=== PATIENT | male | born 1975 | race Caucasian/White ===

== ENCOUNTER 2018-06-18 20:44 | Emergency (ER) | payer MEDICAID, SELFPAY ==
[2018-06-18 20:46] VITALS: BP 146/79; PULSE 79; RESP 15; TEMP 36.8; O2SAT 98; BMI 35.9
--- NOTE | 2018-06-18 21:41 | RAD_ITS ---
STUDY: X-RAY - RIGHT ANKLE REASON FOR EXAM: Male, 42 years old. Right-sided ankle pain while walking. TECHNIQUE: 3 view(s) of the ankle. COMPARISON: October 29, 2013. FINDINGS: There are orthopedic screws visible in the suspected location of the medial malleolus as well as the central distal tibial epiphysis. There is residual deformity of the tibia related to the previous fracture. The distal fibula has a normal appearance. There are degenerative changes of the tibiotalar articulation. There is a large posterior calcaneal enthesophyte. There is a small plantar calcaneal spur. There is a small talar beak. The tarsal bones have a grossly normal appearance. There are degenerative changes of the intertarsal articulations. There is mild soft tissue swelling. RAD/Ankle min 3 Views IMPRESSION: 1. Sequela of previous surgery and tibial fractures. 2. Secondary degenerative changes of the tibiotalar articulation as well as the midfoot. 3. Calcaneal spurs. 4. Mild soft tissue swelling. Electronically Signed: Vita Ireland MD at 22:08 EST , Service support ,
--- NOTE | 2018-06-18 22:30 | ED.VISSUMM ---
- ER Visit Summary Date of Service: 06/18/18 Chief Complaint: Atraumatic right ankle pain and swelling History of Present Illness: The patient is a 42 M history of prior right ankle fracture with screws. Also prior right tibial fracture that had plates and screws. Patient is a history of diabetes and arthritis. He works at [employer] about 8 miles a day. And states he has had some pain and swelling recently. No fever. No redness. No acute injuries. Physical Examination: Middle-aged male no acute distress. Vital signs are stable he is afebrile he does not look septic toxic. H EENT exam unremarkable. Neck nontender. Lungs clear to auscultation bilaterally. Heart regular rate and rhythm no murmur. Abdomen soft nontender normal bowel sounds no peritoneal signs. Extremities moves all 4. Neurovascular intact. Right hip and knee are nontender. Nonswollen. Right ankle mild swelling anteriorly. He has well-healed old surgical incision. He can do dorsi and plantar flexion. DP pulses intact. Achilles tendon is intact. There is no bony deformity. No redness or warmth. He has normal touch sensation to his right foot and he is able to wiggle his toes. Otherwise exam unremarkable. Test Results: Three-view right ankle x-ray shows the screws to be in good position. No acute injury. Mild soft tissue swelling. Significant degenerative changes to his right ankle joint consistent with arthritis. With joint space narrowing. But no acute injury. Emergency Department Course and Treatment: I went over all the x-rays with the patient. His inflammation is consistent with arthritis and all the walking has been doing. Treatment Plan: Ice and elevate. Motrin for pain and inflammation. Increase activity as tolerated. Follow-up with orthopedics as needed. Disposition: Discharge Impression: Right ankle swelling secondary to exacerbation of right ankle arthritis History of prior right ankle fracture with orthopedic repair This note was generated with [employer] dictation software. It may contain incorrect words, spelling, and punctuation that were not noted in review of the chart prior to signing ED Disposition - Plan for ED Patient: Chief Complaint: Lower Extremity Injury Referrals: Care Physician,No Primary [Primary Care Provider] -
--- NOTE | 2018-06-18 22:33 | ED.DCSUM_ITS ---
- ER Visit Summary Date of Service: 06/18/18 Chief Complaint: Atraumatic right ankle pain and swelling History of Present Illness: The patient is a 42 M history of prior right ankle fracture with screws. Also prior right tibial fracture that had plates and screws. Patient is a history of diabetes and arthritis. He works at [employer] about 8 miles a day. And states he has had some pain and swelling recently. No fever. No redness. No acute injuries. Physical Examination: Middle-aged male no acute distress. Vital signs are stable he is afebrile he does not look septic toxic. H EENT exam unremarkable. Neck nontender. Lungs clear to auscultation bilaterally. Heart regular rate and rhythm no murmur. Abdomen soft nontender normal bowel sounds no peritoneal signs. Extremities moves all 4. Neurovascular intact. Right hip and knee are nontender. Nonswollen. Right ankle mild swelling anteriorly. He has well- healed old surgical incision. He can do dorsi and plantar flexion. DP pulses intact. Achilles tendon is intact. There is no bony deformity. No redness or warmth. He has normal touch sensation to his right foot and he is able to wiggle his toes. Otherwise exam unremarkable. Test Results: Three-view right ankle x-ray shows the screws to be in good position. No acute injury. Mild soft tissue swelling. Significant degenerative changes to his right ankle joint consistent with arthritis. With joint space narrowing. But no acute injury. Emergency Department Course and Treatment: I went over all the x-rays with the patient. His inflammation is consistent with arthritis and all the walking has been doing. Treatment Plan: Ice and elevate. Motrin for pain and inflammation. Increase activity as tolerated. Follow-up with orthopedics as needed. Disposition: Discharge Impression: Right ankle swelling secondary to exacerbation of right ankle arthritis History of prior right ankle fracture with orthopedic repair This note was generated with [employer] dictation software. It may contain incorrect words, spelling, and punctuation that were not noted in review of the chart prior to signing ED Disposition - Plan for ED Patient: Chief Complaint: Lower Extremity Injury Referrals: Care Physician,No Primary [Primary Care Provider] -
--- NOTE | 2018-06-18 22:33 | ED.DEP ---
ED Disposition - Plan for ED Patient: Disposition: Home or Assisted Living Chief Complaint: Lower Extremity Injury Instructions: ED Degenerative Joint Disease Referrals: Young Azar DO [STAFF PHYSICIAN] - 10-14 Days if not better Additional Instructions: Ice elevate right ankle. Motrin for pain and inflammation. Tylenol for pain. Follow-up with a local orthopedic physician like Dr. Young Azar if this is not improving.
[2018-06-18 22:41] VITALS: RESP 16
--- NOTE | 2018-06-18 22:42 | ED.RN ---
REVIEWED D/C INSTRUCTIONS, FOLLOW UP CARE, AND S/S THAT WOULD WARRANT A RETURN TO THE ED WITH PT. PT VERBALIZED AN UNDERSTANDING AND DENIES FURTHER QUESTIONS FOR THIS RN. PT SKIN P/W/D, RESP EVEN AND UNLABORED, PT A&O X 3, NO DISTRESS NOTED. PT AMBULATED OUT OF ED, GAIT STEADY.
== END 2018-06-18 22:44 | disposition home or self-care (01) ==
PROVIDERS: Emergency Provider Emergency Medicine
DX: M19.071 Primary osteoarthritis, right ankle and foot (principal); M77.31 Calcaneal spur, right foot; E11.9 Type 2 diabetes mellitus without complications; Z79.4 Long term (current) use of insulin
CPT/HCPCS: 73610; 99282

== ENCOUNTER → 2018-06-27 14:19 | Outpatient (CLI) | payer MEDICAID, SELFPAY ==
[2018-06-26 13:24] VITALS: BMI 35.9
== END ==
PROVIDERS: Visit Provider Physician Assistant Surgical
DX: J02.9 Acute pharyngitis, unspecified (principal)
CPT/HCPCS: 87077; 87081

== ENCOUNTER → 2020-01-25 10:16 | Outpatient (CLI) | payer MEDICAID, SELFPAY ==
[2018-06-26 13:24] VITALS: BMI 35.9
== END ==
DX: Z20.828 Contact with and (suspected) exposure to other viral communicable diseases (principal); R05 Cough
CPT/HCPCS: 87635; 94799; U0003

== ENCOUNTER 2020-02-19 09:36 | Emergency (ER) | payer MEDICAID, SELFPAY ==
[2018-06-26 13:24] VITALS: BMI 35.9
--- NOTE | 2020-02-19 09:55 | ED.DCSUM_ITS ---
History of Present Illness Chief Complaint: Flank Pain Informant: Patient Narrative: 44-year-old male presenting with right lower back pain. He states that it came out of nowhere about a week ago. He states that now it feels like it is radiating into his right flank and around the front of his lower abdomen. He denies any urinary symptoms. He states he had a similar pain in the past but was told he this pain was not in the right place for a kidney stone. Patient has no nausea, vomiting. He is not had fever, chills, shortness of breath, cough. - Past Medical History (1) Reactive airway disease that is not asthma Status: Chronic Past Medical History - Allergies and Home Meds Allergies/Adverse Reactions: Allergies acetaminophen [From Percocet] Allergy (Verified 02/19/20 09:59) Itching oxycodone HCl [From Percocet] Allergy (Verified 02/19/20 09:59) Itching Primary Care Physician: Care Physician,No Primary [Primary Care Provider] - Past Medical History: - - [place], hypertension Surgical History: noncontributory Lives: Spouse/ Significant Other Smoking Status: Never smoker Alcohol: None Drugs: None Review of Systems General: Denies: Chills, Fever, Sweats Eyes: Denies: Visual changes - bilaterally, Diplopia ENT: Denies: Rhinorrhea, Sore throat Cardiovascular: Denies: Chest pain, Palpitations Respiratory: Denies: Dyspnea, Cough, Dyspnea on exertion Gastrointestinal: Reports: Abdominal pain. Denies: Nausea, Vomiting, Diarrhea Genitourinary: Denies: Dysuria, Hematuria Musculoskeletal: Reports: Back pain - Right lower back. Denies: Myalgias, Arthralgias Skin: Denies: Rash, Abscess Physical Exam Inital Vital Signs reviewed: Yes General: Well nourished, No Acute Distress Head: Normocephalic, Atraumatic Eyes: Perrl, EOMI ENT: Moist mucous membranes, No rhinorrhea Cardiovascular: Regular rate, Regular rhythm Respiratory: No distress, CTA bilaterally Abdomen: Soft, Nondistended, Tender - Very mild tenderness to palpation of the right lower flank. Abdomen is non-peritoneal. Extremities: Nontender, No edema Skin: Normal color, No rash Neurological: Alert, Oriented x3 Psychological: Normal affect Diagnostic/Tx/Re-eval Laboratory Data 02/19/20 02/19/20 02/19/20 10:00 10:00 10:08 WBC 7.6 RBC 5.04 Hgb 15.9 Hct 46.0 MCV 91.3 MCH 31.5 MCHC 34.6 RDW Std Deviation 38.5 RDW Coeff of [place] 11.6 Plt Count 240 MPV 9.8 Immature Gran % (Auto) 0.500 Neut % (Auto) 49.7 Lymph % (Auto) 33.5 [place] % (Auto) 10.5 H Eos % (Auto) 4.9 Baso % (Auto) 0.9 Absolute Neuts (auto) 3.8 Absolute Lymphs (auto) 2.55 Nucleated RBC % 0 Sodium 139 Potassium 4.0 Chloride 106 Carbon Dioxide 29.0 Anion Gap 4 L BUN 10 Creatinine 0.90 Estim Creat Clear Calc 104.74 Est GFR (MDRD) Af Amer 118 Est GFR (MDRD) Non-Af 98 BUN/Creatinine Ratio 11.1 Glucose 264 H Calcium 9.0 Urine Color Yellow Urine Clarity Clear Urine pH 5.0 Ur Specific [place] 1.025 Urine Protein 30 H Urine Glucose (UA) 1000 H Urine Ketones 5 H Urine Occult Blood Negative Urine Nitrite Negative Urine Bilirubin Negative Urine Urobilinogen Normal Ur Leukocyte Esterase Negative Urine RBC 0 SEEN Urine WBC 0 SEEN Ur Squamous Epith Cells 0 SEEN Urine Bacteria RARE Urine Mucus 0 SEEN - Medical Decision Making Patient presents with lower back pain which he is concerned is a kidney stone. I checked basic lab work which was normal. Urinalysis shows no blood. His physical exam is most consistent with a musculoskeletal back pain. He is counseled to take ibuprofen [id number] and I will provide him with Flexeril as needed. He is amenable to this plan. He is discharged home in stable condition. Impression: 1. Lumbar strain ED Disposition - Plan for ED Patient: Disposition: Home or Assisted Living Instructions: ED LUMBAR SPRAIN/STRAIN Prescriptions: cycloBENZAPRine HCl [Flexeril] 10 mg PO TID PRN PRN #20 tab PRN Reason: Pain Score 1-10/10 Transmission Status: Received by [id number] Referrals: Care Physician,No Primary [Primary Care Provider] -
[2020-02-19 09:56] VITALS: BP 135/87; PULSE 81; RESP 18; TEMP 36.6; O2SAT 96; BMI 34.7
[2020-02-19] MEDS: Ketorolac 30 MG/ML Syringe IV (10:06)
[2020-02-19 10:20] LABS: Absolute Lymphocyte Count 2.55 X10^3/uL (0.83-4.51); Absolute Neutrophil Count 3.8 X10^3/uL (2.0-7.7); Basophil# 0.07 X10^3/uL; Basophil% 0.9 % (0-1); Eosinophil# 0.37 X10^3/uL; Eosinophils% 4.9 % (0-5); Hemoglobin 15.9 g/dL (13.0-16.5); Lymphocyte # 2.55 X10^3/ul (4.0); Lymphocyte % 33.5 % (19-41); Mean Corp Hgb Conc 34.6 g/dL (32-36); Mean Corpuscular Hgb 31.5 pg (27.0-32.0); Mean Corpuscular Volume 91.3 fL (80-94); Mean Platelet Vol. 9.8 fl (6.2-12.0); Monocyte% 10.5 % (0-10); NRBC Flagged by Analyzer 0 % (0-5); Neutrophil # 3.78 X10^3/uL (2.7-7.7); Neutrophil % 49.7 % (47-70); Platelet Count 240 K/mm3 (150-450); RBC Distribution Width CV 11.6 % (11.6-14.6); RBC Distribution Width SD 38.5 fl (35.1-43.9); Red Blood Count 5.04 M/mm3 (4.6-6.2); White Blood Count 7.6 K/mm3 (4.4-11.0)
[2020-02-19 10:21] LABS: Color, Urine Yellow (Yellow); Glucose, Dipstick 1000 mg/dl (Normal); Ketone-Dipstick 5 mg/dl (Negative); Leukocyte Esterase-Dipstick Negative /ul (Negative); Mucous, Urine 0 SEEN /hpf (<or=2+); Nitrite-Dipstick Negative (Negative); Occult Blood-Urine Negative /ul (Negative); Protein-Dipstick 30 mg/dl (Negative); Red Blood Cells-Urine 0 SEEN /hpf (0-5); Specific Gravity, Urine 1.025 (1.002-1.030); Squamous Epithelial Cells - UA 0 SEEN /hpf (0-5); Urine Bilirubin Dipstick Negative (Negative); Urine Clarity Clear (Clear); Urine Urobilinogen Normal (Normal); White Blood Cells 0 SEEN /hpf (0-5)
[2020-02-19 10:38] LABS: Anion Gap 4 (5-15); BUN 10 mg/dL (7-18); BUN/Creat Ratio 11.1 RATIO (10-20); Chloride 106 mmol/L (98-107); EST Glomerular Filtration Rate 98 mL/min (>60); Est Glom Filt Rate - Afr Amer 118 mL/min (>60); Estimated Creatinine Clearance 104.74 ml/min; Glucose 264 mg/dL (74-106); Sodium Level 139 mmol/L (136-145)
[2020-02-19 10:44] LABS: Bacteria RARE /hpf (None Seen)
== END 2020-02-19 11:30 | disposition home or self-care (01) ==
LOC: ED 10:21
PROVIDERS: Emergency Provider Student in an Organized Health Care Education/Training Program
DX: S39.012A Strain of muscle, fascia and tendon of lower back, initial encounter (principal); I10 Essential (primary) hypertension; X58.XXXA Exposure to other specified factors, initial encounter
CPT/HCPCS: 80048; 81001; 85025; 96374; 99284; A4216

== ENCOUNTER 2020-04-09 09:48 | Emergency (ER) | payer MEDICAID, SELFPAY ==
[2020-04-09 09:49] VITALS: BP 135/82; PULSE 90; RESP 18; TEMP 36.4; O2SAT 100; BMI 34.0
[2020-04-09 10:05] LABS: Bedside Glucose 316 mg/dL (70-110)
--- NOTE | 2020-04-09 10:19 | ED.DCSUM_ITS ---
History of Present Illness Chief Complaint: Hyperglycemia Detail of Chief Complaint: numbness in RUE Informant: Patient Onset: Today Context: - - awoke w/ sx Timing: Continuous Quality: pins & needles Location: outer right upper arm, forearm, and into fingers 4-5 Current Severity: Moderate Maximum Severity: Moderate Worsened by: nothing including turning head different directions Relieved by: nothing Associated Symptoms: right shoulder pain -- see below. no weakness, headache, neck pain. Narrative: Patient states [place] [employer] [place] [employer] 3 days ago, he had a whiplash type injury of his head and arms on one of the coasters toward the end of the day, and he woke up at 2 AM that morning having right shoulder pain which he did not have prior to that. That has been persistent for several days. This morning he woke up with numbness on the outside of his right upper extremity down to his ring and little fingers. He states he has had paresthesias in his fingers off and on in the past, but never up his arm like this. Denies any pain in his neck, headache, vision changes, slurred speech, drooling, or other peripheral neurologic symptoms. He additionally denies any weakness of the right upper extremity and has not been having any trouble holding things. He has not checked his sugar in multiple days, but checked it this morning and it was almost 300. He states he has had polyuria and polydipsia for at least 5 days. He is a type II diabetic compliant with his Metformin but on no other diabetes medications. Denies any recent illness. Patient presents during the national coronavirus emergency declaration/pandemic. He denies any known contact with anyone infected with COVID-19. He denies traveling out of the immediate area recently. - Past Medical History (1) Type 2 diabetes mellitus Status: Chronic Past Medical History - Allergies and Home Meds Allergies/Adverse Reactions: Allergies acetaminophen [From Percocet] Allergy (Verified 04/09/20 09:51) Itching oxycodone HCl [From Percocet] Allergy (Verified 04/09/20 09:51) Itching Primary Care Physician: Doctor,Your [STAFF PHYSICIAN] - Surgical History: noncontributory Smoking Status: Never smoker Review of Systems General: Denies: Chills, Fever, Sweats Eyes: Denies: Visual changes - bilaterally, Diplopia ENT: Denies: Rhinorrhea, Sore throat Cardiovascular: Denies: Chest pain, Palpitations Respiratory: Denies: Dyspnea, Cough, Dyspnea on exertion Gastrointestinal: Denies: Abdominal pain, Nausea, Vomiting, Diarrhea, Melena, Hematochezia Genitourinary: Denies: Dysuria, Hematuria, Frequency Musculoskeletal: Reports: Extremity Pain. Denies: Myalgias, Neck pain, Back pain Skin: Denies: Rash, Wounds Neurological: Reports: Parasthesia. Denies: Headache, Weakness Endocrine: Reports: Polyuria, Polydipsia Physical Exam Vital Signs/Narrative: Vital Signs Temp Pulse Resp BP Pulse Ox 04/09/20 09:49 97.6 F L 90 18 135/82 H 100 Inital Vital Signs reviewed: Yes General: Well nourished, Well developed, No Acute Distress Head: Normocephalic, Atraumatic Eyes: Perrl, EOMI ENT: Moist mucous membranes, No rhinorrhea Neck: Supple, Nontender Cardiovascular: Regular rate, Regular rhythm, No murmurs Respiratory: No distress, CTA bilaterally, Chest nontender Abdomen: Soft, Nontender, Nondistended, Normal bowel sounds Back: Nontender, Normal Inspection Extremities: No edema, Tenderness - Mildly tender anterior right shoulder with a positive Yergason, no tenderness at the acromioclavicular joint. No subacromial tenderness, but also tender posteriorly, lateral to the clavicle. Full range of motion of the right shoulder. Negative drop sign. No deformity. Neg Tinel's R ulnar tunnel Skin: Normal color, No rash Neurological: Alert, Oriented x3, Cranial nerves II-XII grossly intact, Normal Strength, Parasthesia - lateral aspect of RUE including entire ring finger and entire little finger. otherwise nml sensation. Psychological: Normal affect, Normal Mood Diagnostic/Tx/Re-eval Laboratory Tests 04/09/20 04/09/20 04/09/20 Range/Units 10:00 10:00 09:56 WBC 7.8 (4.4-11.0) K/mm3 RBC 5.00 (4.6-6.2) M/mm3 Hgb 15.7 (13.0-16.5) g/dL Hct 45.6 (40-54) % MCV 91.2 (80-94) fL MCH 31.4 (27.0-32.0) pg MCHC 34.4 (32-36) g/dL RDW Std Deviation 38.2 (35.1-43.9) fl RDW Coeff of [place] 11.6 (11.6-14.6) % Plt Count 258 (150-450) K/mm3 MPV 10.1 (6.2-12.0) fl Immature Gran % (Auto) 0.400 (0.0-0.9) % Neut % (Auto) 54.2 (47-70) % Lymph % (Auto) 34.1 (19-41) % [place] % (Auto) 9.4 (0-10) % Eos % (Auto) 1.3 (0-5) % Baso % (Auto) 0.6 (0-1) % Absolute Neuts (auto) 4.2 (2.0-7.7) X10^3/uL Absolute Lymphs (auto) 2.65 (0.83-4.51) X10^3/uL Nucleated RBC % 0 (0-5) % Sodium 136 (136-145) mmol/L Potassium 4.3 (3.5-5.1) mmol/L Chloride 102 (98-107) mmol/L Carbon Dioxide 29.0 (21.0-32.0) mmol/L Anion Gap 5 (5-15) BUN 11 (7-18) mg/dL Creatinine 1.04 (0.70-1.30) mg/dL Estim Creat Clear Calc 90.64 ml/min Est GFR (MDRD) Af Amer 99 (>60) mL/min Est GFR (MDRD) Non-Af 82 (>60) mL/min BUN/Creatinine Ratio 10.6 (10-20) RATIO Glucose 340 H (74-106) mg/dL Calcium 9.0 (8.5-10.1) mg/dL POC Glucose 316 H (70-110) mg/dL - Medical Decision Making With regard to the right shoulder injury, this is likely simply muscular strain that may or may not include the long head of the biceps tendon. Supportive care advised for this, no x-ray needed, I do not think he tore his rotator cuff, I reassured him. I also gave him Toradol 15 mg in the IV for that which was placed prior to my evaluation since nursing obtain labs. He was given a liter of fluid and insulin for his blood sugar, which likely has been elevated for almost a week to a significant degree given his symptoms of polyuria and polydipsia. With regards to the right upper extremity paresthesias, they seem radicular, but actually improved and almost resolved after he received insulin although his sugar is still around 300. He does not have any limitation of moving his head/neck, or tenderness there. If he has persistent numbness for a week or 2, he may need to follow-up for advanced imaging of his neck, none of that is indicated emergently at this time. Furthermore I do not think this is stroke, since the symptoms of paresthesias are in a radicular pattern, coming from C8-T1 levels of the right neck. ED Disposition - Plan for ED Patient: Disposition: Home or Assisted Living Diagnosis: Hyperglycemia due to type 2 diabetes mellitus, Cervical radiculopathy, Right shoulder strain Instructions: ED CERVICAL RADICULOPATHY Referrals: Doctor,Your [STAFF PHYSICIAN] -
[2020-04-09] MEDS: 0.9% Normal Saline 1,000 ML 999 ML IV (10:26)
[2020-04-09] MEDS: Insulin Lispro 100 UNIT/ML INSULN.PEN 10 UNIT SC (10:26)
[2020-04-09] MEDS: Ketorolac 15 MG/ML Vial IV (10:26)
[2020-04-09 10:34] LABS: Absolute Lymphocyte Count 2.65 X10^3/uL (0.83-4.51); Absolute Neutrophil Count 4.2 X10^3/uL (2.0-7.7); Basophil# 0.05 X10^3/uL; Basophil% 0.6 % (0-1); Eosinophils% 1.3 % (0-5); Hematocrit 45.6 % (40-54); Hemoglobin 15.7 g/dL (13.0-16.5); Lymphocyte # 2.65 X10^3/ul (4.0); Lymphocyte % 34.1 % (19-41); Mean Corp Hgb Conc 34.4 g/dL (32-36); Mean Corpuscular Hgb 31.4 pg (27.0-32.0); Mean Corpuscular Volume 91.2 fL (80-94); Mean Platelet Vol. 10.1 fl (6.2-12.0); Monocyte# 0.73 X10^3/uL; Monocyte% 9.4 % (0-10); NRBC Flagged by Analyzer 0 % (0-5); Neutrophil # 4.22 X10^3/uL (2.7-7.7); Neutrophil % 54.2 % (47-70); Platelet Count 258 K/mm3 (150-450); RBC Distribution Width CV 11.6 % (11.6-14.6); RBC Distribution Width SD 38.2 fl (35.1-43.9); White Blood Count 7.8 K/mm3 (4.4-11.0)
[2020-04-09 10:40] LABS: Anion Gap 5 (5-15); BUN 11 mg/dL (7-18); BUN/Creat Ratio 10.6 RATIO (10-20); Chloride 102 mmol/L (98-107); Creatinine, Serum 1.04 mg/dL (0.70-1.30); EST Glomerular Filtration Rate 82 mL/min (>60); Est Glom Filt Rate - Afr Amer 99 mL/min (>60); Estimated Creatinine Clearance 90.64 ml/min; Glucose 340 mg/dL (74-106); Potassium 4.3 mmol/L (3.5-5.1); Sodium Level 136 mmol/L (136-145)
[2020-04-09 11:40] LABS: Bedside Glucose 323 mg/dL (70-110)
--- NOTE | 2020-04-09 11:54 | CM.ED ---
Social Work Consult: No Primary Care Physician Informant: Self Referral Met with patient in room. Introduced self and social work professor role. Patient agreeable to speak with this social work professor. This social work professor broached topic of PCP for patient. Patient reports to have been following with Dr. Salas, but I got busy and stopped going to doctors appointment. Patient educated on importance of following up with PCP to help maintain patient medical health. Patient voices understanding and plans to establish again with Dr. Salas, patient declining to have this social work professor set up appointment for patient. This social work professor also providing patient with list of PCP's in-network with patient insurance. Patient voicing to have no other community needs. Miguel JOHNSON, AUGUST-S
[2020-04-09 12:00] VITALS: BP 140/80; PULSE 74; RESP 16; O2SAT 100; O2SAT 99
== END 2020-04-09 12:01 | disposition home or self-care (01) ==
PROVIDERS: Emergency Provider Emergency Medicine
DX: E11.65 Type 2 diabetes mellitus with hyperglycemia (principal); M54.12 Radiculopathy, cervical region; S46.911A Strain of unspecified muscle, fascia and tendon at shoulder and upper arm level, right arm, initial encounter; X58.XXXA Exposure to other specified factors, initial encounter; Z79.84 Long term (current) use of oral hypoglycemic drugs
CPT/HCPCS: 80048; 82962; 85025; 96374; 99282; 99285; J7030; A4216